=== PATIENT | female | born 1970 | race Caucasian/White ===

== ENCOUNTER 2024-08-19 17:37 | Emergency (ER) | payer MEDICAID ==
[~2024-08-19] VITALS: Ht 167.6 cm; Wt 85.0 kg
[2024-08-19 17:55] VITALS: TEMP 98.5; O2SAT 100
[2024-08-19 19:02] VITALS: BP 130/78; PULSE 77; RESP 16
[2024-08-19] MEDS: KETOROLAC 30MG/ML VIAL IM ONE (19:02)
== END 2024-08-19 19:28 | disposition home or self-care (01) ==
LOC: ER 17:37
DX: R07.89 Other chest pain (principal); M62.830 Muscle spasm of back; M25.511 Pain in right shoulder; R11.10 Vomiting, unspecified; Z90.49 Acquired absence of other specified parts of digestive tract
CPT/HCPCS: 99283; 71045; 93005; 96372; J1885